=== PATIENT | male | born 1995 | race Caucasian/White ===

== ENCOUNTER → 2018-05-28 | Outpatient (CLI) | payer OTHER ==
--- NOTE | 2018-05-28 14:53 | REP ---
Clinical: Acute right-sided lower back pain. Technique: AP, lateral, bilateral oblique, and coned-down views. Findings: Alignment and lordosis is maintained. The vertebral bodies including transverse process and spinous processes are intact and normal. There is no evidence for acute fracture / compression injury or subluxation. No evidence for spondylolysis or spondylolisthesis. No significant degenerative change is noted. Impression: Normal lumbosacral spine radiograph series. Electronically Signed by Praveen Gillis MD 05/28/2018 02:44 P
== END ==
LOC: M LRY 14:16
PROVIDERS: ATTEND Physician Assistant
DX: M54.5 Low back pain (principal)
CPT/HCPCS: 72110; 81002; G0463